=== PATIENT | female | born 1975 | race African-American/Black ===

== ENCOUNTER 2024-05-08 06:16 | Emergency (ER) | payer MEDICAID ==
[~2024-05-08] VITALS: Ht 167.6 cm; Wt 100.0 kg
[2024-05-08 06:24] VITALS: O2SAT 95
[2024-05-08 06:26] VITALS: BP 181/118; PULSE 102; RESP 18; TEMP 98.6; O2SAT 100
[2024-05-08] MEDS ORDERED: ACETAMINOPHEN WITH CODEINE 300/30MG TABLET PO ONE (06:45)
[2024-05-08] MEDS ORDERED: ACETAMINOPHEN WITH CODEINE 300/30MG TABLET PO NR (06:56)
== END 2024-05-08 07:15 | disposition left against medical advice (07) ==
LOC: ER 06:16
DX: M25.552 Pain in left hip (principal); I10 Essential (primary) hypertension; Z88.0 Allergy status to penicillin
CPT/HCPCS: 99281

== ENCOUNTER 2024-05-27 18:42 | Emergency (ER) | payer MEDICAID ==
[~2024-05-27] VITALS: Ht 170.2 cm; Wt 105.0 kg
[2024-05-27 18:49] VITALS: BP 194/125; RESP 18; TEMP 98.7; O2SAT 100
[2024-05-27 19:01] VITALS: O2SAT 97
[2024-05-27 20:09] LABS: EOSINOPHILS % 1.5 % (0.0-5.0); HEMATOCRIT. 39.3 % (36.0-48.0); HEMOGLOBIN. 13.4 g/dL (12.0-16.0); LYMPHOCYTES % 30.1 % (20.0-50.0); MEAN CORPUSCULAR HEMOGLOBIN 32.9 pg (28.0-32.0); MEAN CORPUSCULAR HGB CONC 34.1 g/dL (31.0-37.0); MEAN CORPUSCULAR VOLUME 96.5 fL (81.0-99.0); MONOCYTES % 9.1 % (2.0-8.0); NEUTROPHILS % 58.3 % (40.0-76.0); RED BLOOD CELL COUNT 4.08 mill/uL (4.2-5.4); RED CELL DISTRIBUTION WIDTH 13.7 % (11.6-14.6); WHITE BLOOD COUNT 5.5 x1000/uL (4.5-11.0)
[2024-05-27 20:12] LABS: DIFFERENTIAL COMMENT 1
[2024-05-27 20:18] LABS: CHLORIDE 107 mEq/L (98-107); POTASSIUM 3.7 mEq/L (3.5-5.1); SODIUM 140 mEq/L (136-145)
[2024-05-27 20:19] LABS: CALCIUM 9.8 mg/dL (8.7-10.4); CARBON DIOXIDE 28 mEq/L (21-32)
[2024-05-27 20:24] LABS: CREATININE 0.9 mg/dL (0.6-1.0); GLUCOSE 71 mg/dL (70-105); UREA NITROGEN BLOOD 14 mg/dL (9-23)
[2024-05-27 20:25] VITALS: PULSE 92
[2024-05-27 20:26] LABS: HCG SCREEN NEGATIVE
[2024-05-27 20:36] LABS: MEAN PLATELET VOLUME 8.8 fl (7.4-10.4); PLATELET 290 x1000/uL (130-400)
[2024-05-27] MEDS: KETOROLAC 30MG/ML VIAL IM ONE (20:57)
[2024-05-27 21:19] LABS: CLARITY URINE CLEAR (CLEAR); COLOR URINE YELLOW (YELLOW); GLUCOSE URINE NEGATIVE (NEGATIVE); KETONES URINE NEGATIVE (NEGATIVE); LEUKOCYTE ESTERASE URINE NEGATIVE (NEGATIVE); NITRITE URINE NEGATIVE (NEGATIVE); OCCULT BLOOD URINE NEGATIVE (NEGATIVE); PROTEIN URINE NEGATIVE (NEGATIVE)
[2024-05-27] MEDS ORDERED: KETO10TA2 MT (21:31)
== END 2024-05-27 21:52 | disposition home or self-care (01) ==
LOC: ER 18:42
DX: M25.552 Pain in left hip (principal); I10 Essential (primary) hypertension; Z86.73 Personal history of transient ischemic attack (TIA), and cerebral infarction without residual deficits; Z88.0 Allergy status to penicillin
CPT/HCPCS: 99284; 80048; 81003; 81025; 84703; 85025; 36415; 73502; 96372; J1885